=== PATIENT | female | born 1950 | race Caucasian/White ===

== ENCOUNTER 2019-06-19 10:01 | Day surgery (SDC) | payer MEDICARE ==
[~2019-06-19 10:01] MED LIST: Buffered Lidocaine 1% SYRIN* 1 ML/SYRINGE INTRADERM ONE; Dexamethasone IV* 4 MG/ML 1 ML (4 MG) IV SLOW PU ONE; Famotidine IV* 10 MG/ML 2 ML (20 mg) IV ONE; Lactated Ringers 1000 ML Bag* 1,000 ML IV SCH; fentaNYL* 50 MCG/ML 2 ML VIAL (100 MCG VIAL) ONE
[2019-06-19] MEDS ORDERED: ceFAZolin 2 GM PREMIX in ORs 2 GM/50 ML BAG ONE (10:23)
[2019-06-19] MEDS ORDERED: Dexamethasone IV* 4 MG/ML 1 ML (4 MG) ONE (10:23)
[2019-06-19] MEDS ORDERED: Famotidine IV* 10 MG/ML 2 ML (20 mg) ONE (10:24)
[2019-06-19] MEDS ORDERED: Bupivacaine 0.5%* 50 ML MDV VIAL ONE (10:43)
[2019-06-19] MEDS ORDERED: Midazolam* 1 MG/ML 2 ML VIAL (2 MG) ONE (11:13)
[2019-06-19] MEDS ORDERED: Propofol* 10 MG/ML 20 ML BTL ONE ×2 (11:36→12:07)
[2019-06-19] MEDS ORDERED: Lidocaine 2% PF* 10 ML AMP ONE (11:40)
[2019-06-19 14:00] VITALS: BP 136/80
--- NOTE | 2019-06-19 22:57 | OP ---
DATE OF OPERATION: 06/19/19 - [facility] DATE OF : 46 SURGEON: Thompson Saez MD STONE TRIMMER: TUCKER Ruiz PRE-OP DIAGNOSIS: Painful hardware, left metatarsal and left proximal phalanx, great toe. POST-OP DIAGNOSIS: Painful hardware, left metatarsal and left proximal phalanx , great toe. OPERATIVE PROCEDURE: Removal of hardware, left midfoot and forefoot. DESCRIPTION OF PROCEDURE: The patient was taken to the operating room where straight medial incision was made through the previous incision proximal first metatarsal. Subperiosteal dissection dorsally and plantar exposed the two screw heads which were removed with a small fragment hex-head screwdriver. Then distally, a 1 cm incision was made at the medial first MTP joint and we isolated the cruciate head mini frag screw, which was removed with a small hook osteotome. Both wounds were irrigated and closed with Monocryl and nylon for the skin and a compression dressing applied. [id number] #: [id number] MTDD
== END 2019-06-19 14:06 | disposition home or self-care (01) ==
LOC: OR 10:01
PROVIDERS: ATTEND Orthopaedic Surgery
DX: T84.84XA Pain due to internal orthopedic prosthetic devices, implants and grafts, initial encounter (principal); Y83.1 Surgical operation with implant of artificial internal device as the cause of abnormal reaction of the patient, or of later complication, without mention of misadventure at the time of the procedure; M77.42 Metatarsalgia, left foot; I10 Essential (primary) hypertension; J30.2 Other seasonal allergic rhinitis; Z87.891 Personal history of nicotine dependence; F41.8 Other specified anxiety disorders; M19.90 Unspecified osteoarthritis, unspecified site; Z85.51 Personal history of malignant neoplasm of bladder
CPT/HCPCS: 88300; J0690; J1100; J2001; J2250; J2704; J3010; J3490